=== PATIENT | female | born 1990 | race Hispanic/Latino ===

== ENCOUNTER 2017-06-28 21:32 | Emergency (ER) | payer MEDICAID, OTHER ==
[2017-06-28] MEDS ORDERED: ALBUTEROL SULFATE 0.083% 2.5 MG/3 ML INH IH ONE (23:12)
[2017-06-29] MEDS ORDERED: ALBUTEROL SULFATE 0.083% 2.5 MG/3 ML INH IH ONE (00:31)
[2017-06-29] MEDS ORDERED: METHYLPREDNISOLONE SOD SUCC 125MG/2ML VIAL ONE (01:18)
== END 2017-06-29 01:47 | disposition home or self-care (01) ==
LOC: EDH 21:32
DX: O99.513 Diseases of the respiratory system complicating pregnancy, third trimester (principal); J45.21 Mild intermittent asthma with (acute) exacerbation; E07.9 Disorder of thyroid, unspecified; Z3A.34 34 weeks gestation of pregnancy; Z88.0 Allergy status to penicillin; Z88.6 Allergy status to analgesic agent
CPT/HCPCS: 87804 ×2; 94640 ×2; 96374; 99284; J2930

== ENCOUNTER 2017-07-18 10:35 | Emergency (ER) | payer MEDICAID ==
[2017-07-18] MEDS ORDERED: IPRATROPIUM/ALBUTEROL SULFATE 3 ML SOLUTION IH ONE (10:51)
[2017-07-18] MEDS ORDERED: SODIUM CHLORIDE 0.9% 1000ML 1,000 ML IV ONE (10:52)
[2017-07-18] MEDS ORDERED: METHYLPREDNISOLONE SOD SUCC 40MG/ML 1ML ONE (10:52)
== END 2017-07-18 12:45 | disposition home or self-care (01) ==
LOC: EDH 10:35
DX: O99.513 Diseases of the respiratory system complicating pregnancy, third trimester (principal); J45.21 Mild intermittent asthma with (acute) exacerbation; E07.9 Disorder of thyroid, unspecified; Z3A.36 36 weeks gestation of pregnancy; Z88.0 Allergy status to penicillin; Z88.6 Allergy status to analgesic agent
CPT/HCPCS: 87804 ×2; 94640; 96361; 96374; 99285; J2920; J7030

== ENCOUNTER 2019-01-02 23:51 | Emergency (ER) | payer MEDICAID, OTHER ==
[2019-01-03] MEDS ORDERED: ACETAMINOPHEN EXTRA STRENGTH 500 MG TABLET ONE (00:38)
[2019-01-03] MEDS ORDERED: ONDANSETRON ODT 4 MG TAB ONE (00:38)
== END 2019-01-03 01:53 | disposition home or self-care (01) ==
LOC: EDH 23:51
DX: A08.4 Viral intestinal infection, unspecified (principal); J45.909 Unspecified asthma, uncomplicated; E07.9 Disorder of thyroid, unspecified; Z88.0 Allergy status to penicillin; Z88.6 Allergy status to analgesic agent
CPT/HCPCS: 87804